=== PATIENT | female | born 1995 | race Two or more races ===

== ENCOUNTER → 2022-12-05 | Outpatient (REF) | payer OTHER | LOC: M LAB REF 14:45 | PROVIDERS: ATTEND Registered Nurse | DX: Z12.4 Encounter for screening for malignant neoplasm of cervix (principal) | CPT/HCPCS: 87624; G0123 ==

== ENCOUNTER → 2023-04-14 | Outpatient (CLI) | payer OTHER ==
[2023-04-14 13:58] LABS: HEMATOCRIT 38.4 % (36.0-47.0); MEAN CORPUSCULAR HEMOGLOBIN 28.3 pg (27.0-33.0); MEAN CORPUSCULAR HGB CONC 33.9 g/dl (32.0-36.5); MEAN CORPUSCULAR VOLUME 83.5 fl (80.0-96.0); PLATELET COUNT, AUTOMATED 219 10^3/uL (150-450); WHITE BLOOD COUNT 10.3 10^3/uL (4.0-10.0)
[2023-04-14 15:10] LABS: HIV 1&2 SCREEN NEGATIVE (NEGATIVE)
[2023-04-14 15:19] LABS: HEPATITIS C VIRUS ABY INDEX < 0.02 INDEX (<0.8)
== END ==
LOC: M PLALAB 09:12
PROVIDERS: ATTEND Obstetrics & Gynecology
DX: Z36.89 Encounter for other specified antenatal screening (principal); Z3A.00 Weeks of gestation of pregnancy not specified
CPT/HCPCS: 36415; 76801; 85027; 86762; 86780; 86803; 86850; 86900; 86901; 87086; 87340; 87389; 87490; 87590; G0463

== ENCOUNTER → 2023-05-11 | Outpatient (CLI) | payer OTHER | LOC: M PLALAB 15:33 | PROVIDERS: ATTEND Obstetrics & Gynecology | DX: Z34.92 Encounter for supervision of normal pregnancy, unspecified, second trimester (principal) ==

== ENCOUNTER → 2023-07-01 | Outpatient (CLI) | payer OTHER ==
[2023-07-01 15:41] LABS: HEMATOCRIT 35.2 % (36.0-47.0); HEMOGLOBIN 11.8 g/dl (12.0-15.5); MEAN CORPUSCULAR HEMOGLOBIN 29.4 pg (27.0-33.0); MEAN CORPUSCULAR HGB CONC 33.5 g/dl (32.0-36.5); MEAN CORPUSCULAR VOLUME 87.6 fl (80.0-96.0); PLATELET COUNT, AUTOMATED 235 10^3/uL (150-450); RED BLOOD COUNT 4.02 10^6/uL (4.00-5.40); WHITE BLOOD COUNT 16.2 10^3/uL (4.0-10.0)
== END ==
LOC: M PLALAB 12:41
PROVIDERS: ATTEND Advanced Practice Midwife
DX: Z34.02 Encounter for supervision of normal first pregnancy, second trimester (principal)

== ENCOUNTER → 2023-09-25 | Outpatient (REF) | payer OTHER | LOC: M SFHCWAGY 10:19 | PROVIDERS: ATTEND Specialist | DX: Z34.03 Encounter for supervision of normal first pregnancy, third trimester (principal) ==

== ENCOUNTER 2023-10-08 20:16 | Inpatient (IN) | payer OTHER ==
[~2023-10-08] VITALS: Ht 149.9 cm; Wt 87.0 kg
[2023-10-08] MEDS ORDERED: PRENTAB9 PO (20:35)
[2023-10-08 21:43] LABS: BASO % 0.3 % (0.0-1.0); EOS # 0.1 10^3/uL (0.0-0.5); EOS % 0.5 % (0.0-3.0); HEMOGLOBIN 12.4 g/dl (12.0-15.5); LYMPH # 2.1 10^3/uL (1.5-5.0); LYMPH % 13.5 % (24.0-44.0); MEAN CORPUSCULAR HEMOGLOBIN 28.2 pg (27.0-33.0); MEAN CORPUSCULAR HGB CONC 33.5 g/dl (32.0-36.5); MEAN CORPUSCULAR VOLUME 84.3 fl (80.0-96.0); MONO # 0.7 10^3/uL (0.0-0.8); MONO % 4.5 % (2.0-8.0); NEUTROPHILS # 12.2 10^3/uL (1.5-8.5); NEUTROPHILS % 80.5 % (36.0-66.0); PLATELET COUNT, AUTOMATED 191 10^3/uL (150-450); RED BLOOD COUNT 4.39 10^6/uL (4.00-5.40); WHITE BLOOD COUNT 15.2 10^3/uL (4.0-10.0)
[2023-10-08 22:48] LABS: HEPATITIS C VIRUS ABY INDEX < 0.02 INDEX (<0.8)
[2023-10-08 23:02] VITALS: BP 145/82
[2023-10-08] MEDS: LR 1,000 ML IV SCH (23:04)
[2023-10-08] MEDS: OXYTOCIN DRIP 30 UNITS in IV 1 EA IV SCH (23:04)
[2023-10-08 23:30] VITALS: BP 134/82
[2023-10-09] VITALS (13 sets, daily range): BP systolic 104–150; BP diastolic 55–82; O2SAT 95–99
[2023-10-09] MEDS ORDERED: FENTANYL 2MCG/ML ROPIVACAINE 0.2% IN 0.9% NACL 100ML IVBAG As Ordered ONE (03:58)
[2023-10-09] MEDS ORDERED: ACETAMINOPHEN 500 MG TAB As Ordered ONE (10:58)
[2023-10-09] MEDS ORDERED: ceFAZolin 2 GM/D5W 50 ML IV BAG As Ordered ONE (11:36)
[2023-10-09] MEDS ORDERED: MAGNESIUM SULFATE 4% INJ 20GM/500ML (40MG/ML) As Ordered ONE (11:37)
[2023-10-09] MEDS ORDERED: MAGNESIUM *L&D* 4GM/100ML BAG (40MG/ML) As Ordered ONE (11:37)
[2023-10-09] MEDS ORDERED: BICITRA 30ML SOLN UDC As Ordered ONE (11:37)
[2023-10-09] MEDS: MAG Sulf (L&D) 4 GM/100 ML 4 GM in IV 1 EA IV ONE (11:46)
[2023-10-09] MEDS: MAG Sulf (OBGYN) 20GM/500ML 20,000 MG in IV 1 EA IV SCH (11:46)
[2023-10-09] MEDS ORDERED: LIDOCAINE 2% W/EPINEPHRINE 20ML VIAL **PRES FREE As Ordered ONE (11:46)
[2023-10-09] MEDS ORDERED: ONDANSETRON 4MG 2ML VIAL As Ordered ONE (11:48)
[2023-10-09] MEDS ORDERED: OXYTOCIN INJ 10UNITS/ML 1ML VIAL As Ordered ONE (11:48)
[2023-10-09] MEDS ORDERED: AZITHROMYCIN INJ 500MG VIAL As Ordered ONE (11:49)
[2023-10-09] MEDS: AZITHROMYCIN INJ 500 MG, VIAL MATE ADAPTER 1 EACH in NS 250 ML IV ONE (11:54)
[2023-10-09] MEDS: BICITRA 30ML SOLN UDC PO ONE (12:00)
[2023-10-09] MEDS: ceFAZolin SOD 2 GM in IV 1 EA IV ONE (12:15)
[2023-10-09] MEDS ORDERED: KETAMINE HCL 200MG/20ML VIAL As Ordered ONE (12:27)
[2023-10-09] MEDS ORDERED: fentaNYL 100 MCG/2 ML INJECTION As Ordered ONE (12:27)
[2023-10-09] MEDS ORDERED: MORPHINE PRES-FREE INJ 10 MG/10 ML VIAL As Ordered ONE (12:28)
[2023-10-09] MEDS ORDERED: MIDAZOLAM INJ 2MG/2ML VIAL As Ordered ONE (12:47)
[2023-10-09] MEDS ORDERED: SIMETHICONE 80MG CHEW TAB PO PRN (13:15)
[2023-10-09] MEDS ORDERED: PERCOCET 5MG/325MG TAB PO PRN (13:15)
[2023-10-09] MEDS: OXYTOCIN DRIP 30 UNITS in IV 1 EA IV SCH (13:15)
[2023-10-09] MEDS ORDERED: ANUSOL HC CREAM 30GM TOP PRN (13:15)
[2023-10-09] MEDS ORDERED: CALCIUM CARBONATE 500 MG CHEW U/D PO PRN (13:15)
[2023-10-09] MEDS ORDERED: IBUPROFEN 800 MG TAB PO PRN (13:15)
[2023-10-09] MEDS ORDERED: RHO(D) IMMUNE GLOBULIN/MALTOSE 500MCG(2500IU)/2.2ML VIAL (WINRHO) IM SCH (13:15)
[2023-10-09] MEDS ORDERED: MORPHINE 4 MG/ML 1ML VIAL IV PRN (13:15)
[2023-10-09] MEDS ORDERED: TRANEXAMIC ACID INJection 1,000 MG in NS 100 ML IV PRN (13:20)
[2023-10-09] MEDS ORDERED: CARBOPROST TROMETHAMINE 250 MCG/ML AMP IM PRN (13:20)
[2023-10-09] MEDS ORDERED: CALCIUM GLUCONATE 1,000 MG in D5W MINI-BAG PLUS 100 ML IV PRN (13:20)
[2023-10-09] MEDS: LABETALOL 100MG/20ML VIAL IV ONE (13:20)
[2023-10-09] MEDS: LABETALOL 100MG/20ML VIAL IV SCH (13:30)
[2023-10-09] MEDS ORDERED: OXYTOCIN 30UNITS IN 0.9% NaCl 500ML IV BAG As Ordered ONE (13:32)
[2023-10-09] MEDS ORDERED: MAGNESIUM *L&D* 4GM/100ML BAG (40MG/ML) IV ONE (14:40)
[2023-10-09 16:11] LABS: ALT/SGPT 13 U/L (7.0-40); AST/SGOT 12 U/L (<34); BILIRUBIN,TOTAL 0.5 MG/DL (0.3-1.2); CREATININE FOR GFR 0.58 MG/DL (0.55-1.30); GLOMERULAR FILTRATION RATE > 60.0 (>60); LDH LACTATE DEHYDROGENASE 162 U/L (120-246)
[2023-10-09 16:12] LABS: CREATININE,RANDOM URINE 53.9 MG/DL; TOTAL PROTEIN,RANDOM URINE 231.3 MG/DL (0.0-14.0)
[2023-10-09] MEDS: PROMETHAZINE 25MG/ML 1ML VIAL IV ONE (16:47)
[2023-10-09] MEDS: LR 1,000 ML IV SCH (16:51)
[2023-10-09] MEDS: KETOROLAC 30 MG/ML 1ML VIAL IV SCH (19:33)
[2023-10-09] MEDS: DOCUSATE SODIUM 100MG CAPSULE PO SCH (21:47)
[2023-10-09] MEDS: ONDANSETRON 4MG 2ML VIAL IV PRN (23:20)
[2023-10-10] VITALS (11 sets, daily range): BP systolic 97–131; BP diastolic 50–83; O2SAT 98–100
[2023-10-10] MEDS ORDERED: METOCLOPRAMIDE INJ 10MG/2ML VIAL IV PRN (01:25)
[2023-10-10 07:43] LABS: HEMATOCRIT 26.1 % (36.0-47.0); MEAN CORPUSCULAR HEMOGLOBIN 28.9 pg (27.0-33.0); MEAN CORPUSCULAR HGB CONC 33.7 g/dl (32.0-36.5); MEAN CORPUSCULAR VOLUME 85.6 fl (80.0-96.0); PLATELET COUNT, AUTOMATED 158 10^3/uL (150-450); RED BLOOD COUNT 3.05 10^6/uL (4.00-5.40); WHITE BLOOD COUNT 23.6 10^3/uL (4.0-10.0)
[2023-10-10 07:54] LABS: HEMOGLOBIN 8.8 g/dl (12.0-15.5)
[2023-10-10 08:01] LABS: LDH LACTATE DEHYDROGENASE 300 U/L (120-246)
[2023-10-10 08:14] LABS: ALT/SGPT 13 U/L (7.0-40); AST/SGOT 25 U/L (<34); BILIRUBIN,TOTAL 0.5 MG/DL (0.3-1.2); CREATININE FOR GFR 0.74 MG/DL (0.55-1.30); GLOMERULAR FILTRATION RATE > 60.0 (>60); MAGNESIUM LEVEL 7.2 MG/DL (1.8-2.4)
[2023-10-10] MEDS: FERROUS SULFATE 325MG TAB PO SCH (09:12)
[2023-10-10] MEDS: PRENATAL VITAMINS CHEWABLE TABLET PO SCH (09:12)
[2023-10-10] MEDS: IBUPROFEN 800 MG TAB PO SCH (15:00)
[2023-10-11] VITALS (8 sets, daily range): BP systolic 111–161; BP diastolic 57–84; TEMP 97; O2SAT 97–100
[2023-10-11] MEDS: ACETAMINOPHEN 500 MG TAB PO PRN (02:11)
[2023-10-11] MEDS ORDERED: MEASLES,MUMPS,RUBELLA VACCINE INJ (MMR-II) SC.IMMUN ONE (09:00)
[2023-10-11] MEDS: BISACODYL 10MG SUPP PR ONE (22:01)
[2023-10-12] MEDS: PERCOCET 5MG/325MG TAB PO PRN (00:22)
[2023-10-12 02:00] VITALS: BP 122/67; O2SAT 96
[2023-10-12] MEDS ORDERED: PERCOCET PO (04:51)
[2023-10-12] MEDS ORDERED: COLA100C5 PO (04:51)
[2023-10-12] MEDS ORDERED: IBUP80TA PO (04:51)
[2023-10-12 06:00] VITALS: BP 113/77; O2SAT 98
== END 2023-10-12 12:37 | disposition home or self-care (01) | DRG 773 ==
LOC: M LDO 20:16 → M LDI 22:10 → M OBS 10-09 15:00
PROVIDERS: ADMIT Obstetrics & Gynecology; ATTEND Obstetrics & Gynecology
PROC: 10D00Z1 Extraction of Products of Conception, Low, Open Approach (ICD-10-PCS; principal; 2023-10-09 12:38)
DX: O14.14 Severe pre-eclampsia complicating childbirth (principal); Z37.0 Single live birth; Z3A.39 39 weeks gestation of pregnancy; O62.0 Primary inadequate contractions

== ENCOUNTER → 2023-10-08 | Outpatient (CLI) | payer OTHER ==
[~2023-10-08] MED LIST: COLA100C5 PO; IBUP80TA PO; PERCOCET PO; PRENTAB9 PO
== END ==
LOC: M WHC 13:18
PROVIDERS: ATTEND Obstetrics & Gynecology
DX: O41.03X0 Oligohydramnios, third trimester, not applicable or unspecified (principal); Z3A.38 38 weeks gestation of pregnancy